=== PATIENT | female | born 2000 | race Caucasian/White ===

== ENCOUNTER 2021-05-21 11:34 | Day surgery (SDC) | payer BC ==
[2021-05-21] MEDS ORDERED: hydrALAZINE 20 MG/ML VIAL SLOW IVP PRN (12:13)
[2021-05-21 12:26] LABS: Bilirubin Neg (Negative); Blood, Urine 10 (Negative); Clarity Slightly Cloudy (Clear); Glucose, Urine (Dipstick) Normal (Negative); Ketone, Urine Negative (Negative); Leukocyte 500 (Negative); Nitrite Negative (Negative); Protein, Urine (Dipstick) 15 mg/dl (Neg-Trace); Urobilinogen Normal mg/dL (Less than 2)
[2021-05-21 12:30] LABS: #Basophils 0.1 10x3/uL (0.0-0.2); #Eosinphils 0.3 10x3/uL (0.0-0.5); #Monocytes 0.8 10x3/uL (0.0-1.1); #Neutrophils 8.4 10x3/uL (1.5-8.4); %Basophils 0.4 % (0.0-2.0); %Eosinophils 2.2 % (0.0-6.0); %Lymphocytes 17.6 % (18.0-47.0); %Monocytes 6.8 % (0.0-10.0); %Neutrophils 72.2 % (40.0-75.0); Hemoglobin 11.1 g/dL (12.0-15.5); Mean Corpuscular HGB CONC 32.1 g/dL (32.0-36.0); Mean Corpuscular Hemoglobin 29.4 pg (27.0-33.0); Mean Corpuscular Volume 91.8 fl (81.6-98.3); Mean Platelet Volume 10.9 fl (7.4-10.4); Platelet Count 259 10x3/uL (150-450); RBC Distribution Width 11.9 % (11.5-14.5); Red Blood Cell (RBC) Count 3.77 10x6/uL (3.90-5.03); White Blood Cell (WBC) Count 11.6 10x3/uL (3.5-10.5)
[2021-05-21 12:35] LABS: Urine Culture Reflex No No
[2021-05-21 12:36] LABS: WBC/HPF Greater than 50 HPF (0-3)
[2021-05-21 12:38] LABS: Bacteria/HPF 3+ HPF (None Seen); Yeast-Budding Rare HPF (None Seen)
[2021-05-21 12:39] LABS: Squamous Epithelial 21-50 HPF (0-3)
[2021-05-21 13:03] LABS: ALT (SGPT) 16 U/L (8-55); AST (SGOT) 21 U/L (5-34); Albumin 3.2 g/dL (3.5-5.0); Alkaline Phosphatase 199 U/L (40-110); Anion Gap 14 mmol/L (10-20); BUN (Urea Nitrogen) 9 mg/dL (7.0-18.7); Bilirubin, Total 0.2 mg/dL (0.2-1.2); Calc. Creatinine Clearance 0 mL/min (70-130); Calcium 8.2 mg/dL (7.8-10.44); Carbon Dioxide 19 mmol/L (22-29); Chloride 109 mmol/L (98-107); Glucose 124 mg/dL (70-105); Protein, Total 6.2 g/dL (6.0-8.3); Sodium 138 mmol/L (136-145)
[2021-05-21 14:23] LABS: Creatinine, Urine 84.26 mg/dL (47-110)
== END 2021-05-21 13:41 | disposition home or self-care (01) ==
LOC: CSHLD/OP 11:34
PROVIDERS: ATTEND Obstetrics & Gynecology
DX: O99.891 Other specified diseases and conditions complicating pregnancy (principal); R03.0 Elevated blood-pressure reading, without diagnosis of hypertension; O23.43 Unspecified infection of urinary tract in pregnancy, third trimester; N39.0 Urinary tract infection, site not specified; O98.813 Other maternal infectious and parasitic diseases complicating pregnancy, third trimester; B37.3 Candidiasis of vulva and vagina; Z3A.36 36 weeks gestation of pregnancy
CPT/HCPCS: 80053; 81001; 82570; 84156; 85025

== ENCOUNTER 2021-06-14 21:43 | Inpatient (IN) | payer BC ==
[2021-06-14 22:00] VITALS: BMI 29.2
[2021-06-14] MEDS ORDERED: hydrALAZINE 20 MG/ML VIAL SLOW IVP PRN (23:20)
[2021-06-15] MEDS ORDERED: hydrALAZINE 20 MG/ML VIAL SLOW IVP PRN ×2 (01:12→18:53)
[2021-06-15] MEDS ORDERED: HYDROcodone/Acetaminophen 5/325 mg Tablet PO PRN ×3 (01:12→18:53)
[2021-06-15] MEDS ORDERED: Ibuprofen 800 MG TAB PO PRN (01:12)
[2021-06-15] MEDS ORDERED: Lidocaine 1% (PF) 30 ML VIAL SC PRN (01:12)
[2021-06-15] MEDS ORDERED: Ondansetron PF 4 MG/2 ML Vial IVP PRN ×3 (01:12→18:53)
[2021-06-15] MEDS ORDERED: Butorphanol Tartrate 1 MG/ML VIAL SLOW IVP PRN (01:12)
[2021-06-15] MEDS ORDERED: NS w/ Oxytocin 30 units 500 ML IV SCH (01:15)
[2021-06-15] MEDS: Lactated Ringer's 1,000 ML IV SCH ×2 (01:20→08:30)
[2021-06-15 01:51] LABS: Hemoglobin 11.5 g/dL (12.0-15.5); Mean Corpuscular HGB CONC 33.4 g/dL (32.0-36.0); Mean Corpuscular Hemoglobin 29.9 pg (27.0-33.0); Mean Corpuscular Volume 89.4 fl (81.6-98.3); Mean Platelet Volume 11.4 fl (7.4-10.4); Platelet Count 241 10x3/uL (150-450); RBC Distribution Width 13.1 % (11.5-14.5); Red Blood Cell (RBC) Count 3.85 10x6/uL (3.90-5.03); White Blood Cell (WBC) Count 14.2 10x3/uL (3.5-10.5)
[2021-06-15 02:28] LABS: Syphilis Antibody Nonreactive (Nonreactive); Syphilis Antibody Index 0.15 S/CO (<1.00 Non-Reactive)
[2021-06-15 02:29] LABS: Hep B Surf Ag Non-Reactive S/CO (NonReactive)
[2021-06-15 02:35] LABS: SARS-CoV-2 NAA Rapid Test Not Detected (NotDetected)
[2021-06-15 02:43] LABS: HBSAg Index 0.16 S/CO (0-0.99)
[2021-06-15] MEDS ORDERED: Bupivacaine 0.25% HCL 30 ML VIAL ONE (08:00)
[2021-06-15] MEDS ORDERED: Fentanyl 2 mcg/Bup 0.1% Cadd 100 ML ONE ×2 (08:10→14:33)
[2021-06-15] MEDS ORDERED: diphenhydrAMINE 50 MG/ML VIAL IVP PRN (08:18)
[2021-06-15] MEDS ORDERED: Acetaminophen 325 MG TAB PO PRN (08:18)
[2021-06-15] MEDS ORDERED: Naloxone HCl 0.4 mg/ml Vial IVP PRN ×2 (08:18)
[2021-06-15] MEDS ORDERED: Promethazine HCl 25 MG/ML VIAL IM PRN (08:18)
[2021-06-15] MEDS ORDERED: Lactated Ringer's 500 ML IV PRN (08:18)
[2021-06-15] MEDS ORDERED: Hydrocerin (Eucerin) Cream 120 gm Jar TOP PRN (08:18)
[2021-06-15] MEDS ORDERED: ePHEDrine Sulfate 50 MG/10 ML VIAL SLOW IVP PRN (08:18)
[2021-06-15] MEDS ORDERED: Communication Order-Pharmacy FS SCH (08:30)
[2021-06-15] MEDS ORDERED: Fentanyl 2 mcg/Bupivacaine 0.1% Cassette 100 ML EPIDURAL SCH (08:30)
[2021-06-15] MEDS ORDERED: Methylergonovine 0.2 MG/ML VIAL ONE (15:47)
[2021-06-15] MEDS ORDERED: Misoprostol 200 MCG TAB ONE (15:47)
[2021-06-15] MEDS ORDERED: Carboprost 250 MCG/ML AMP ONE (15:47)
[2021-06-15 16:11] LABS: RapidComm Collect By CBN; pH (Cord, venous) 7.207 (7.250-7.350)
[2021-06-15 16:12] LABS: RapidComm Collect By CBN
[2021-06-15] MEDS ORDERED: Milk Of Magnesia 30 ML UDCUP PO PRN (18:53)
[2021-06-15] MEDS ORDERED: Boostrix 0.5 ML (Tdap) VIAL IM ONE (18:53)
[2021-06-15] MEDS ORDERED: Preparation H Ointment 28 GM TUBE PR PRN (18:53)
[2021-06-15] MEDS ORDERED: Benzocaine-Menthol 82.5 ML CAN TOP PRN (18:53)
[2021-06-15] MEDS ORDERED: diphenhydrAMINE 25 MG CAP PO PRN (18:53)
[2021-06-15] MEDS ORDERED: Bisacodyl 10 MG SUPP PR PRN (18:53)
[2021-06-15] MEDS ORDERED: Ferrous Sulfate 325 MG TAB PO SCH (20:00)
[2021-06-15] MEDS: Docusate 100 MG CAP PO SCH (21:26)
[2021-06-15] MEDS: Ibuprofen 800 MG TAB PO SCH (21:26)
[2021-06-16 07:02] LABS: Hemoglobin 9.4 g/dL (12.0-15.5)
[2021-06-16] MEDS: Ibuprofen 800 MG TAB PO SCH ×3 (07:03→21:22)
[2021-06-16] MEDS ORDERED: Prenatal Vitamin 1 TAB PO SCH (09:00)
[2021-06-16] MEDS: Ferrous Sulfate 325 MG TAB PO SCH ×2 (09:31→21:22)
[2021-06-16] MEDS: Docusate 100 MG CAP PO SCH ×2 (09:32→21:23)
[2021-06-16] MEDS: Lactated Ringer's 1,000 ML IV SCH (20:15)
[2021-06-16 21:28] VITALS: BP 127/77; TEMP 98.6
== END 2021-06-16 23:00 | disposition home or self-care (01) | DRG 807 ==
LOC: CSHLD/OP 21:43 → CSHLD 06-15 01:12 → CSHPP 06-15 18:10
PROVIDERS: ADMIT Obstetrics & Gynecology; ATTEND Obstetrics & Gynecology
PROC: 10D07Z6 Extraction of Products of Conception, Vacuum, Via Natural or Artificial Opening (ICD-10-PCS; principal; 2021-06-15)
PROC: 0UQGXZZ Repair Vagina, External Approach (ICD-10-PCS; 2021-06-15)
PROC: 0UQMXZZ Repair Vulva, External Approach (ICD-10-PCS; 2021-06-15)
PROC: 10907ZC Drainage of Amniotic Fluid, Therapeutic from Products of Conception, Via Natural or Artificial Opening (ICD-10-PCS; 2021-06-15)
DX: O75.81 Maternal exhaustion complicating labor and delivery (principal); Z37.0 Single live birth; Z20.822 Contact with and (suspected) exposure to COVID-19; Z3A.39 39 weeks gestation of pregnancy; O66.0 Obstructed labor due to shoulder dystocia; O90.81 Anemia of the puerperium; D64.9 Anemia, unspecified
CPT/HCPCS: 36415; 51702; 82805; 85014; 85018; 85027; 86780; 86850; 86900; 86901; 87340; 99285; J0595; J2405; J2590; J7120; S0020; U0002